=== PATIENT | female | born 1960 | race Hispanic/Latino ===

== ENCOUNTER → 2022-04-07 | Outpatient (CLI) | payer BC, SELFPAY ==
[~2022-04-07] MED LIST: ROSU20TA23 PO
== END | disposition home or self-care (01) ==
LOC: RAH 09:31
PROVIDERS: ATTEND Nurse Practitioner Adult Health
DX: R09.89 Other specified symptoms and signs involving the circulatory and respiratory systems (principal)
CPT/HCPCS: 93922